=== PATIENT | male | born 1980 | race Caucasian/White ===

== ENCOUNTER 2021-01-02 16:51 | Emergency (ER) | payer OTHER, SELFPAY ==
[2021-01-02 16:55] VITALS: BP 150/84; PULSE 80; RESP 16; TEMP 36.5; O2SAT 100; BMI 36.2
--- NOTE | 2021-01-02 17:00 | DI.RAD.S_ITS ---
PROCEDURE: XR ANKLE RT MIN 3V INDICATIONS: Fall TECHNIQUE: 3 views of the ankle were acquired. COMPARISON: None. FINDINGS: Bones: There is a mildly displaced distal fibular fracture, which is seen at and above the level of the syndesmosis. The syndesmosis is believed to be mildly widened. There is also a mildly displaced medial malleolar fracture, with intra-articular involvement. The talar dome demonstrates no luisa abnormality. No posterior malleolar fracture can be seen on the lateral view. Soft tissues: Soft tissue swelling is seen. IMPRESSION: Intra-articular fractures are seen involving the distal fibula and the medial malleolus. If it would be helpful for clinical management decision making, please consider a dedicated ankle CT. Dictated by: Baldomero Narayanan M.D. on 01/02/2021 at 16:27 Approved by: Baldomero Narayanan M.D. on 01/02/2021 at 16:28
--- NOTE | 2021-01-02 18:39 | ED_ITS ---
HPI - Extremity Injury (Lower) General Chief Complaint: Extremity Injury, Lower Stated Complaint: RIGHT ANKLE INJURY Time Seen by Provider: 01/02/21 18:28 Source: patient Mode of arrival: Ambulatory History of Present Illness HPI Narrative: Patient is a 40-year-old male here for evaluation of a right ankle injury. He states that earlier this evening he was playing with his kids. He jumped up in the air and when he landed he is unsure exactly what happened but he think that his foot slipped forward. He states that he felt a crack. Was able to ambulate a small amount afterwards but was very uncomfortable for him. Did not fall. No other injuries from the event. Related Data Previous Rx's Medication Instructions Recorded hydrocodone 5 mg-acetaminophen 325 1 tab PO Q4-6H PRN #10 tab 01/02/21 mg tablet Review of Systems Constitutional Constitutional: Reports system reviewed and no additional complaints, except as documented Cardiovascular Cardiovascular: Reports system reviewed and no additional complaints, except as documented Respiratory Respiratory: Reports system reviewed and no additional complaints, except as documented Gastrointestinal Gastrointestinal: Reports system reviewed and no additional complaints, except as documented Musculoskeletal Musculoskeletal: Reports as per HPI Integumentary/Breasts Skin/Breast: Reports system reviewed and no additional complaints, except as documented Neurologic Neurologic: Reports system reviewed and no additional complaints, except as documented Hematologic/Lymphatic On Anticoagulants: No Patient History Medical History Healthy adult Social History Smoking Status: Never smoker Smoking Status: Never smoker Substance Use Type: does not use Exam Initial Vital Signs Initial Vital Signs: Vital Signs Temperature 97.7 F 01/02/21 16:55 Pulse Rate 80 01/02/21 16:55 Respiratory Rate 16 01/02/21 16:55 Blood Pressure 150/84 H 01/02/21 16:55 Pulse Oximetry 100 01/02/21 16:55 Const General: cooperative and comfortable HENMT Head: normal to inspection and normocephalic Eyes General: appearance normal, both eyes and all related structures Resp Effort & Inspection: normal respiratory effort Cardio Pulses: dorsalis pedis present on the right Skin General: no rashes or lesions noted Neuro General: patient alert, patient awake and moves all extremities Sensory Exam: no sensory deficits noted Extrem Other: Fibular tenderness. His right knee is unremarkable. Does have tenderness to palpation around the right ankle. His right foot is unremarkable. Psych Appearance: grossly normal and well kempt Procedures Orthopedic Splinting/Casting Injury #1: Side: right Lower Extremity Injury Location: ankle Lower Extremity Immobilizer: posterior splint and stirrup splint Other Orthopedic Equipment: crutches Post splinting neuro exam: no change Post splinting vascular exam: no change Placed by: Provider Course Orders Ordered: ED Orders 01/02/21 17:00 XR ankle RT min 3V Stat Discontinued Medications Hydrocodone Bitart/Acetaminophen (Hydrocodone/Acet 5/325 Prepack) 1 bottle MISC SEEINSTR ONE Stop: 01/02/21 20:28 Last Admin: 01/02/21 20:38 Dose: 1 bottle Documented by: [email or web address] Hydromorphone HCl (Hydromorphone 1 Mg Inj) 1 mg IM NOW ONE Stop: 01/02/21 18:40 Last Admin: 01/02/21 19:31 Dose: 1 mg Documented by: [email or web address] Vital Signs Vital signs: Vital Signs - 8 hr 01/02/21 20:52 Pulse Rate 68 Respiratory Rate 14 Blood Pressure 144/78 H Pulse Oximetry 97 MDM - Extremity Injury (Lower) Imaging Data Extremity x-ray #1: Radiologist's Impression: [address] [id number] ReportSigned Patient: Mp Machuca WMR#: [id number]: [id number]:[id number]/Sex: 40 / MDate of Service: 01/02/21Loc: EDAccession Number: [id number] Procedure: XR ankle RT min 3V Ordering Provider: Fina Dillon D.O. PROCEDURE: XR ANKLE RT MIN 3V INDICATIONS: Fall TECHNIQUE: 3 views of the ankle were acquired. COMPARISON: None. FINDINGS: Bones: There is a mildly displaced distal fibular fracture, which is seen at and above the level of the syndesmosis. The syndesmosis is believed to be mildly widened. There is also a mildly displaced medial malleolar fracture, with intra-articular involvement. The talar dome demonstrates no luisa abnormality. No posterior malleolar fracture can be seen on the lateral view. Soft tissues: Soft tissue swelling is seen. IMPRESSION: Intra-articular fractures are seen involving the distal fibula and the medial malleolus. If it would be helpful for clinical management decision making, please consider a dedicated ankle CT. Dictated by: Baldomero Narayanan M.D. on 01/02/2021 at 16:27 Approved by: Baldomero Narayanan M.D. on 01/02/2021 at 16:28 [facility] Narrative Medical decision making narrative: Patient is neurovascularly intact. He does have a right ankle fracture. No other injuries reported from the event for found on the exam. Patient was placed in a splint as described above. Was given crutches. Was given a copy of his x-rays on a CD. He will contact the orthopedic providers on the [facility] tomorrow for a follow-up. He was given care instructions and return precautions. He expressed understanding and agreement. Discharge Plan Departure Patient Disposition: Home Clinical Impression: Ankle fracture Instructions: How to Use Crutches, DI for Ankle Fracture, How to Take Care of Your Splint Activity Restrictions/Additional Instructions: Tomorrow contact the Orthopedic Department on the [facility] for a follow-up. The splint that was placed today needs to stay on and stay clean and stay dry. You need to treat it like a cast. Return to the emergency department for any new or worsening symptoms. A prescription for pain medication was electronically transmitted to the [facility] pharmacy on the [facility]. Prescriptions: New hydrocodone-acetaminophen 5-325 mg tablet 1 tab PO Q4-6H PRN (Reason: pain) Qty: 10 RF: 0 Stand Alone Forms: Work Release Note
[2021-01-02] MEDS: HYDROMORPHONE 1 MG INJ IM (19:31)
[2021-01-02] MEDS: HYDROCODONE/ACET 5/325 PREPACK 1 BOTTLE MISC (20:38)
[2021-01-02 20:52] VITALS: BP 144/78; PULSE 68; RESP 14; O2SAT 97
== END 2021-01-02 20:54 | disposition home or self-care (01) ==
PROVIDERS: Emergency Provider Emergency Medicine
DX: S82.891A Other fracture of right lower leg, initial encounter for closed fracture (principal); Y93.39 Activity, other involving climbing, rappelling and jumping off
CPT/HCPCS: 29515; 73610; 96372; 99283; J1170

== ENCOUNTER → 2021-08-16 17:18 | Outpatient (CLI) | payer OTHER, SELFPAY ==
--- NOTE | 2021-08-16 | DI.MRI.S_ITS ---
PROCEDURE: MR LUMBAR SPINE WO CON INDICATIONS: lumbar pain TECHNIQUE: Noncontrast sagittal T1 spin echo and T2 fast echo, sagittal STIR, axial T1 and T2 fast spin echo through the lumbar spine. In cases with scoliosis, additional coronal T2 fast spin echo may be performed. COMPARISON: [facility] [place], CR, XR LUMBAR SPINE 2 OR 3 VIEWS, 07/28/2021, 9:25. FINDINGS: Image quality: Excellent. Alignment and Curvature: There is normal bony alignment. Bone Marrow: Modic type 2 reactive endplate changes noted adjacent to the L5-S1 disc. No acute vertebral body compression fractures. Spinal Cord: Conus medullaris terminates at the T12 level. Visualized cord demonstrates normal signal and size. Paraspinous Soft Tissues: No paravertebral masses. T12-L1: Normal appearance. L1-L2: Normal appearance. L2-L3: Normal appearance. L3-L4: Normal appearance. L4-L5: Loss of disc signal. Mild, diffuse disc bulge. Central/left central/left foraminal broad-based disc protrusion. Disc protrusion abuts and displaces the traversing left L5 nerve root. Mild narrowing of the central canal. Moderate left neural foraminal narrowing. Fissure noted in the posterior annulus. L5-S1: Loss of disc signal and height. Moderate, diffuse disc bulge. Small central disc protrusion. Mild bilateral facet hypertrophy. Mild narrowing of the central canal. Mild right and [id number] left neural foraminal narrowing. No neural compression. Fissure noted in the posterior annulus. IMPRESSION: 1. L4-L5 and L5-S1 degenerative disc disease. 2. L5-S1 facet arthropathy. 3. No severe central canal narrowing. 4. No severe neural foraminal narrowing. 5. Broad-based L4-L5 disc protrusion abuts and displaces the traversing left L5 nerve root. Please correlate with clinical data. 6. L4-L5 and L5-S1 disc annulus fissures. Dictated by: Sharon Pulido MD, PhD on 08/17/2021 at 10:12 Approved by: Sharon Pulido MD, PhD on 08/17/2021 at 10:57
== END ==
PROVIDERS: Referring Provider Orthopaedic Surgery Orthopaedic Surgery of the Spine; Visit Provider Orthopaedic Surgery Orthopaedic Surgery of the Spine
DX: M51.36 Other intervertebral disc degeneration, lumbar region (principal); M51.37 Other intervertebral disc degeneration, lumbosacral region; M47.817 Spondylosis without myelopathy or radiculopathy, lumbosacral region; M51.26 Other intervertebral disc displacement, lumbar region
CPT/HCPCS: 72148